=== PATIENT | female | born 1995 | race Caucasian/White ===

== ENCOUNTER 2021-04-14 17:51 | Inpatient (IN) ==
[2021-04-14 19:10] LABS: Bilirubin,Urine Negative (Negative); Blood,Urine Negative (Negative); Clarity,Urine Clear (Clear); Color,Urine Light-Yellow (Yellow); Glucose,Urine (UA) Normal (Normal); Ketones,Urine Negative (Negative); Leukocyte Esterase,Urine Negative (Negative); Nitrite,Urine Negative (Negative); PH,Urine 5.5 pH Units (5.0-8.0); Protein,Urine Trace mg/dL (Neg-Trace); Specific Gravity,Urine 1.028 (1.010-1.025); Urobilinogen,Urine Normal (Normal)
[2021-04-14 19:20] LABS: Basophils % 0.2 %; Eosinophils # 0.1 K/mcL (0.0-0.6); Eosinophils % 1.3 %; Hematocrit 38.7 % (35.3-44.9); Hemoglobin 12.4 g/dL (11.5-15.4); Immature Granulocytes % 0.5 % (0-4); Lymphocytes # 1.7 K/mcL (0.6-4.6); Lymphocytes % 14.9 %; Mean Corpuscular Hemoglobin 25.4 pg (28.0-33.3); Mean Corpuscular Volume 79.1 fL (83.0-100.0); Monocytes # 0.6 K/mcL (0.0-1.3); Monocytes % 5.7 %; Neutrophils # 8.6 K/mcL (1.6-8.9); Platelet Count 397 K/mcL (140-400); Red Blood Count 4.89 M/mcL (3.82-4.97); Red Cell Distribution Width 15.5 % (11.5-14.5); Segmented Neutrophils % 77.4 %; White Blood Count 11.1 K/mcL (4.3-11.1)
[2021-04-14 19:27] LABS: Amphetamine Screen,Urine Negative ng/mL (Cutoff=1000); Barbiturate Screen,Urine Negative ng/mL (Cutoff=200); Benzodiazepines Screen,Urine Negative ng/mL (Cutoff=200); Cannabinoid Screen,Urine Positive ng/mL (Cutoff = 50); Cocaine Screen,Urine Negative ng/mL (Cutoff= 300); Opiate Screen,Urine Negative ng/mL (Cutoff=300); Phencyclidine Screen,Urine Negative ng/mL (Cutoff=25)
[2021-04-14 21:21] LABS: Acetaminophen < 10 mcg/mL (10-20); BUN/Creatinine Ratio 16 (6-26); Blood Urea Nitrogen 14 mg/dL (6-20); Calcium 9.2 mg/dL (8.6-10.3); Carbon Dioxide 23 mEq/L (23-29); Chloride 105 mEq/L (98-107); Chol/HDL Ratio 3.8 (0-4.9); Cholesterol 147 mg/dL (< 200); Ethanol < 10 mg/dL (Less than 10); Glucose 79 mg/dL (70-105); HDL Cholesterol 39 mg/dL (40-59); LDL Cholesterol,Calculated 91 mg/dL (< 100); Osmolality,Calculated 283 (280-300); Potassium 3.7 mEq/L (3.5-5.1); Salicylate < 2.5 mg/dL (15.0-30.0); Sodium 137 mEq/L (136-145); Triglycerides 86 mg/dL (< 150); eGFR For African Americans > 60 (> 60); eGFR For Non-African Americans > 60 (> 60)
[2021-04-14 21:51] LABS: Estimated Average Glucose 126 mg/dl
[2021-04-15 01:42] LABS: Influenza A PCR Negative (Negative); Influenza B PCR Negative (Negative); Resp. Syncytial Virus PCR Negative (Negative)
[2021-04-15 01:43] LABS: SARS-CoV-2 by PCR (In House) Negative (Negative)
[2021-04-15] MEDS ORDERED: Mag Hydrox/Al Hydrox/Simeth 30 ML UDC PO PRN (01:49)
[2021-04-15] MEDS ORDERED: *HR* LORazepam 1 MG TABLET PO PRN (01:49)
[2021-04-15] MEDS ORDERED: MOM Conc 10 ML UD.LIQ PO PRN (01:49)
[2021-04-15] MEDS ORDERED: Ibuprofen 400 MG TABLET PO PRN (01:49)
[2021-04-15] MEDS ORDERED: hydrOXYzine pamoate 25 MG CAPSULE PO PRN (01:49)
[2021-04-15] MEDS ORDERED: Haloperidol Lactate 5 MG/ML VIAL IM PRN (01:49)
[2021-04-15] MEDS ORDERED: Acetaminophen 325 MG TABLET PO PRN (01:49)
[2021-04-15] MEDS ORDERED: *HR* LORazepam 2 MG/ML VIAL IM PRN (01:49)
[2021-04-15] MEDS ORDERED: haloperidoL 5 MG TABLET PO PRN (01:49)
[2021-04-15] MEDS ORDERED: QUEtiapine Fumarate 25 MG TABLET PO PRN (01:49)
[2021-04-15] MEDS ORDERED: FLUoxetine 20 MG CAPSULE PO ONE (11:00)
[2021-04-15] MEDS: FLUoxetine HCl Oral Soln 20 MG/5 ML UDC PO SCH (12:44)
[2021-04-16] MEDS: FLUoxetine HCl Oral Soln 20 MG/5 ML UDC PO SCH (09:26)
[2021-04-16] MEDS ORDERED: FLUoxetine 20 MG CAPSULE PO ONE (11:30)
[2021-04-17] MEDS ORDERED: FLUoxetine 20 MG CAPSULE PO SCH (09:00)
[2021-04-17 09:07] VITALS: BP 119/83; PULSE 84; TEMP 97.7; O2SAT 98
== END 2021-04-17 16:55 | disposition home or self-care (01) | DRG 751 ==
LOC: EMEROOARM 17:51 → 1ANU 04-15 00:51
PROVIDERS: ADMIT Psychiatry & Neurology Psychiatry; ATTEND Psychiatry & Neurology Psychiatry